=== PATIENT | male | born 1960 | race Caucasian/White ===

== ENCOUNTER 2018-01-03 09:24 | Emergency (ER) | payer MEDICAID ==
[2018-01-03] MEDS ORDERED: Sodium Chloride 0.9% 10 ML Syringe FLUSH PRN (09:42)
[2018-01-03] MEDS ORDERED: Aspirin 81 MG Tab.Chew PO ONE (09:42)
--- NOTE | 2018-01-03 11:03 | EDM.PDOC ---
ED HPI GENERAL MEDICAL PROBLEM - General Chief Complaint: Chest Pain Stated Complaint: CHEST PAIN X 3 DAYS Time Seen by Provider: 01/03/18 09:32 Source of Information: Reports: Patient History Limitations: Reports: No Limitations - History of Present Illness INITIAL COMMENTS - FREE TEXT/NARRATIVE: The patient presents with chest pain. This started about 3 days ago. He was lifting some heavy bricks 4 days ago and the next day he felt the pain. The pain is on the left side of his chest and he can reproduce it with palpation. The pain is also worse with deep breathing an leaning forward. He smokes but he has no history of HTN, diabetes, CAD and hypercholesterolemia. He has no shortness of breath or cough, fever, or chills. Onset: Gradual Duration: Day(s): (3) Location: Reports: Chest Quality: Reports: Sharp Severity: Moderate Improves with: Reports: Immobilization Worsens with: Reports: Breathing, Movement Context: Reports: Activity (Started after lifting bricks) Associated Symptoms: Reports: Chest Pain. Denies: No Other Symptoms, Nausea/ Vomiting, Shortness of Breath Left Chest Pain Score (Numeric/FACES): 4 - Related Data Allergies Allergy/AdvReac Type Severity Reaction Status Date / Time No Known Allergies Allergy Verified 01/03/18 09:28 Home Meds: Home Meds . [No Known Home Meds] 01/03/18 [History] Past Medical History - Past Surgical History GI Surgical History: Reports: Hernia, Inguinal Social & Family History - Tobacco Use Smoking Status *Q: Current Every Day Smoker Years of Tobacco use: 30 Packs/Tins Daily: 1 - Caffeine Use Caffeine Use: Reports: Coffee, Soda - Recreational Drug Use Recreational Drug Use: No ED ROS GENERAL - Review of Systems Review Of Systems: See Below Constitutional: Reports: No Symptoms HEENT: Reports: No Symptoms Respiratory: Reports: No Symptoms Cardiovascular: Reports: Chest Pain Endocrine: Reports: No Symptoms GI/Abdominal: Reports: No Symptoms : Reports: No Symptoms Musculoskeletal: Reports: No Symptoms ED EXAM, GENERAL - Physical Exam Exam: See Below Exam Limited By: No Limitations General Appearance: Alert, No Apparent Distress Ears: Normal External Exam Nose: Normal Inspection Head: Atraumatic, Normocephalic Neck: Normal Inspection Respiratory/Chest: No Respiratory Distress, Lungs Clear, Normal Breath Sounds Cardiovascular: Regular Rate, Rhythm, No Edema, No Murmur GI/Abdominal: Soft, Non-Tender, No Organomegaly, No Mass Back Exam: Normal Inspection Extremities: Normal Inspection EKG INTERPRETATION EKG Date: 01/03/18 Time: 09:37 Rhythm: NSR Rate (Beats/Min): 75 [place]: Normal P-Wave: Present QRS: Normal ST-T: Normal QT: Normal Course - Vital Signs Last Recorded V/S: Last Vital Signs Temp 97.4 F 01/03/18 09:29 Pulse 72 01/03/18 09:29 Resp 12 01/03/18 09:29 BP 134/97 H 01/03/18 09:29 Pulse Ox 98 01/03/18 09:29 - Orders/Labs/Meds Orders: Active Orders 24 hr Category Date Time Status Cardiac Monitoring [RC] . DIRECTED Care 01/03/18 09:42 Active EKG Documentation Completion [RC] STAT Care 01/03/18 09:42 Active Peripheral IV Care [RC] . DIRECTED Care 01/03/18 09:43 Active Chest 1V Frontal [CR] Stat Exams 01/03/18 09:43 Taken Sodium Chloride 0.9% [Saline Flush] Med 01/03/18 09:42 Active 10 ml FLUSH ASDIRECTED PRN Peripheral IV Insertion Adult [OM.PC] Stat Oth 01/03/18 09:42 Ordered Medication Orders Sodium Chloride (Saline Flush) 10 ml FLUSH ASDIRECTED PRN PRN Reason: Keep Vein Open Last Admin: 01/03/18 09:48 Dose: 10 ml Labs: Laboratory Tests 01/03/18 01/03/18 01/03/18 Range/Units 09:30 09:30 09:30 WBC 6.79 (4.23-9.07) K/mm3 RBC 5.55 (4.63-6.08) M/mm3 Hgb 16.9 (13.7-17.5) gm/L Hct 50.7 (40.1-51.0) % MCV 91.4 (79.0-92.2) fl MCH 30.5 (25.7-32.2) pg MCHC 33.3 (32.2-35.5) g/dl RDW Std Deviation 45.1 H (35.1-43.9) fL Plt Count 232 (163-337) K/mm3 MPV 10.1 (9.4-12.3) fl Neut % (Auto) 65.3 (34.0-67.9) % Lymph % (Auto) 19.9 L (21.8-53.1) % Patrick % (Auto) 9.1 (5.3-12.2) % Eos % (Auto) 4.7 (0.8-7.0) Baso % (Auto) 0.9 (0.1-1.2) % Neut # (Auto) 4.43 (1.78-5.38) K/mm3 Lymph # (Auto) 1.35 (1.32-3.57) K/mm3 Patrick # (Auto) 0.62 (0.30-0.82) K/mm3 Eos # (Auto) 0.32 (0.04-0.54) K/mm3 Baso # (Auto) 0.06 (0.01-0.08) K/mm3 D-Dimer, Quantitative 0.22 (0.19-0.59) mg/L Sodium 140 (136-145) mEq/L Potassium 4.5 (3.5-5.1) mEq/L Chloride 104 (98-107) mEq/L Carbon Dioxide 30 (21-32) mEq/L Anion Gap 10.5 (5-15) BUN 13 (7-18) mg/dL Creatinine 1.3 (0.7-1.3) mg/dL Est Cr Clr Drug Dosing 69.64 mL/min Estimated GFR (MDRD) 57 (>60) mL/min BUN/Creatinine Ratio 10.0 L (14-18) Glucose 116 H (74-106) mg/dL Calcium 9.3 (8.5-10.1) mg/dL Total Bilirubin 0.4 (0.2-1.0) mg/dL AST 12 L (15-37) U/L ALT 26 (16-63) U/L Alkaline Phosphatase 78 (46-116) U/L Troponin I < 0.017 (0.00-0.056) ng/mL Total Protein 7.5 (6.4-8.2) g/dl Albumin 3.8 (3.4-5.0) g/dl Globulin 3.7 gm/dL Albumin/Globulin Ratio 1.0 (1-2) Meds: Medications Generic Name Dose Route Start Last Admin Trade Name Freq PRN Reason Stop Dose Admin Sodium Chloride 10 ml 01/03/18 09:42 01/03/18 09:48 Saline Flush FLUSH 10 ml ASDIRECTED PRN Administration Keep Vein Open Discontinued Medications Generic Name Dose Route Start Last Admin Trade Name Sandy PRN Reason Stop Dose Admin Aspirin 324 mg 01/03/18 09:42 01/03/18 09:48 Aspirin PO 01/03/18 09:43 324 mg ONETIME ONE Administration - Re-Assessments/Exams Free Text/Narrative Re-Assessment/Exam: 01/03/18 11:02 I ordered an IV saline lock, EKG, CXR, labs and aspirin. His EKG shows a NSR with no acute changes. His CXR shows some mild emphysema. His CBC and CMP look good. His troponin is negative. He feels better. This is chest wall pain. I will discharge him home. Departure - Departure Time of Disposition: 11:05 Disposition: Home, Self-Care 01 Condition: Good Clinical Impression: Chest wall pain Referrals: Сергей Naranjo MD [Primary Care Provider] - 1 Week Additional Instructions: Try to stop smoking. Take motrin or aleve for the pain. Please return if you are worse. - My Orders Last 24 Hours: My Active Orders 01/03/18 09:42 Cardiac Monitoring [RC] . DIRECTED EKG Documentation Completion [RC] STAT Sodium Chloride 0.9% [Saline Flush] 10 ml FLUSH ASDIRECTED PRN Peripheral IV Insertion Adult [OM.PC] Stat 01/03/18 09:43 Peripheral IV Care [RC] . DIRECTED Chest 1V Frontal [CR] Stat - Assessment/Plan Last 24 Hours: My Active Orders 01/03/18 09:42 Cardiac Monitoring [RC] . DIRECTED EKG Documentation Completion [RC] STAT Sodium Chloride 0.9% [Saline Flush] 10 ml FLUSH ASDIRECTED PRN Peripheral IV Insertion Adult [OM.PC] Stat 01/03/18 09:43 Peripheral IV Care [RC] . DIRECTED Chest 1V Frontal [CR] Stat
--- NOTE | 2018-01-03 14:23 | CR ---
Chest: Portable view of the chest was obtained. Comparison: Prior chest x-ray of 06/30/13. Heart size and mediastinum are normal. Lungs are clear. Bony structures are grossly intact. Impression: 1. Nothing acute is identified on portable chest x-ray. Diagnostic code #1
== END 2018-01-03 11:12 | disposition home or self-care (01) ==
LOC: JD.ED 09:24
DX: R07.89 Other chest pain (principal); F17.210 Nicotine dependence, cigarettes, uncomplicated
CPT/HCPCS: 36415; 71045; 80053; 84484; 85025; 85379; 93005; 99285; A9270; J7050; 93010; 99284-25

== ENCOUNTER 2020-12-21 12:55 | Emergency (ER) | payer MEDICAID ==
[2020-12-21] MEDS ORDERED: Ondansetron 4 MG Tab.DIS PO ONE (14:48)
--- NOTE | 2020-12-21 14:56 | EDM.PDOC ---
ED HPI GENERAL MEDICAL PROBLEM - General Chief Complaint: General Stated Complaint: VOMITING/DIZZY/UNSTEADY Time Seen by Provider: 12/21/20 14:40 Source of Information: Reports: Patient History Limitations: Reports: No Limitations - History of Present Illness INITIAL COMMENTS - FREE TEXT/NARRATIVE: 59-year-old male presents emergency department complains of dizziness. He state s this suddenly occurred today and he had associated vomiting noted with this. He is unable to bend over or go from lying flat to sitting upright without having severe dizziness. He states this occurred about 1 month ago when he thought he had gotten a little too much water in his ear. His friend had given him eardrops to remove wax he said he used those and the dizziness resolved. Onset: Today, Sudden - Related Data Allergies Allergy/AdvReac Type Severity Reaction Status Date / Time No Known Allergies Allergy Verified 12/21/20 13:03 Home Meds: Home Meds Ciprofloxacin HCl/Dexameth [Ciproflox-Dexameth Otic Susp] 7.5 ml OT BID #2 drops.susp 12/21/20 [Rx] Meclizine [Antivert] 12.5 mg PO Q8H PRN #30 tab 12/21/20 [Rx] Past Medical History Cardiovascular History: Reports: None Respiratory History: Reports: None Gastrointestinal History: Reports: None Genitourinary History: Reports: None Musculoskeletal History: Reports: Arthritis, Back Pain, Chronic, Other (See Below) Other Musculoskeletal History: chronic shoulder and hip pain Neurological History: Reports: None Psychiatric History: Reports: Addiction Endocrine/Metabolic History: Reports: None Hematologic History: Reports: None Immunologic History: Reports: None Oncologic (Cancer) History: Reports: None Dermatologic History: Reports: None - Infectious Disease History Infectious Disease History: Reports: Chicken Pox - Past Surgical History Head Surgeries/Procedures: Reports: None HEENT Surgical History: Reports: Oral Surgery GI Surgical History: Reports: Hernia, Inguinal Social & Family History - Family History Family Medical History: No Pertinent Family History HEENT: Reports: None Cardiac: Reports: None Respiratory: Reports: None GI: Reports: None : Reports: None OBGYN: Reports: None Musculoskeletal: Reports: None Neurological: Reports: Alzheimers Disease Endocrine/Metabolic: Reports: None Hematologic: Reports: None - Tobacco Use Tobacco Use Status *Q: Current Every Day Tobacco User Years of Tobacco use: 40 Packs/Tins Daily: 1 - Caffeine Use Caffeine Use: Reports: None - Recreational Drug Use Recreational Drug Use: Yes Drug Use in Last 12 Months: No Recreational Drug Type: Reports: Cocaine, Marijuana/Hashish, Methamphetamine Recreational Drug Use Frequency: Not Used In Over 1 Year ED ROS GENERAL - Review of Systems Review Of Systems: See Below Constitutional: Reports: No Symptoms. Denies: Fever, Chills, Diaphoresis HEENT: Reports: No Symptoms, Vertigo Respiratory: Reports: No Symptoms Cardiovascular: Reports: No Symptoms Endocrine: Reports: No Symptoms GI/Abdominal: Reports: Nausea (Position changes), Vomiting (With position changes) : Reports: No Symptoms Musculoskeletal: Reports: No Symptoms Skin: Reports: No Symptoms Neurological: Reports: Dizziness. Denies: Headache, Numbness, Syncope Psychiatric: Reports: No Symptoms Hematologic/Lymphatic: Reports: No Symptoms Immunologic: Reports: No Symptoms ED EXAM, GENERAL - Physical Exam Exam: See Below Exam Limited By: No Limitations General Appearance: Alert, WD/WN, Mild Distress Eye Exam: Bilateral Eye: PERRL Ears: Normal External Exam Ear Exam: Bilateral Ear: Canal Normal (erythema and edema noted bilaterally), TM normal, Erythema, Swelling Nose: Normal Inspection, Normal Mucosa Throat/Mouth: Normal Inspection, Normal Lips, Normal Voice, No Airway Compromise. No: Normal Teeth (no teeth) Head: Atraumatic, Normocephalic Neck: Normal Inspection, Supple, Non-Tender, Full Range of Motion Respiratory/Chest: No Respiratory Distress, Lungs Clear, Normal Breath Sounds, No Accessory Muscle Use, Chest Non-Tender Cardiovascular: Normal Peripheral Pulses, Regular Rate, Rhythm, No Edema, No Murmur Peripheral Pulses: 2+: Radial (L), Radial (R) GI/Abdominal: Normal Bowel Sounds, Soft, Non-Tender, No Distention (Male) Exam: Deferred Rectal (Males) Exam: Deferred Back Exam: Normal Inspection, Full Range of Motion Extremities: Normal Inspection, Normal Range of Motion, Non-Tender, No Pedal Edema, Normal Capillary Refill Neurological: Alert, Oriented, CN II-XII Intact, Normal Cognition, No Motor/Sensory Deficits Psychiatric: Normal Affect, Normal Mood Skin Exam: Warm, Dry, Intact, Normal Color, No Rash Lymphatic: No Adenopathy Course - Vital Signs Text/Narrative:: 59-year-old male presents the emergency department with complaints of sudden onset dizziness. He states this started this afternoon and he had associated vomiting with this. Denies syncope or chest pain. States he had similar incident about a month ago when he got water in his ear. He states his friend gave him some earwax drops and then this resolved. Denies any significant medical history and does not take any prescription medications. Dr. Malik is his primary physician. States that any repositioning in the bed from side to side or lying flat to sitting causes him to have extreme dizziness and nausea and vomiting. I have ordered baseline lab work, an EKG, and a CT of the head. Full neuro exam was completely unremarkable. Patient does have some nystagmus noted when turning his head from side to side. Last Recorded V/S: Last Vital Signs Temp 97.2 F 12/21/20 13:06 Pulse 78 12/21/20 13:06 Resp 18 12/21/20 13:06 BP 166/107 H 12/21/20 13:06 Pulse Ox 98 12/21/20 13:06 - Orders/Labs/Meds Orders: Active Orders 24 hr Category Date Time Status EKG Documentation Completion [RC] STAT Care 12/21/20 14:49 Active Labs: Laboratory Tests 12/21/20 12/21/20 12/21/20 Range/Units 13:41 13:41 13:41 WBC 5.69 (4.23-9.07) K/mm3 RBC 5.02 (4.63-6.08) M/mm3 Hgb 15.2 D (13.7-17.5) gm/dl Hct 45.7 (40.1-51.0) % MCV 91.0 (79.0-92.2) fl MCH 30.3 (25.7-32.2) pg MCHC 33.3 (32.2-35.5) g/dl RDW Std Deviation 44.5 H (35.1-43.9) fL Plt Count 214 (163-337) K/mm3 MPV 10.0 (9.4-12.3) fl Neut % (Auto) 54.5 (34.0-67.9) % Lymph % (Auto) 30.4 (21.8-53.1) % [place] % (Auto) 9.1 (5.3-12.2) % Eos % (Auto) 4.4 (0.8-7.0) Baso % (Auto) 1.1 (0.1-1.2) % Neut # (Auto) 3.10 (1.78-5.38) K/mm3 Lymph # (Auto) 1.73 (1.32-3.57) K/mm3 [place] # (Auto) 0.52 (0.30-0.82) K/mm3 Eos # (Auto) 0.25 (0.04-0.54) K/mm3 Baso # (Auto) 0.06 (0.01-0.08) K/mm3 Sodium 142 (136-145) mEq/L Potassium 3.9 (3.5-5.1) mEq/L Chloride 105 (98-107) mEq/L Carbon Dioxide 26 (21-32) mEq/L Anion Gap 14.9 (5-15) BUN 20 H (7-18) mg/dL Creatinine 1.1 (0.7-1.3) mg/dL Est Cr Clr Drug Dosing 80.34 mL/min Estimated GFR (MDRD) > 60 (>60) mL/min BUN/Creatinine Ratio 18.2 H (14-18) Glucose 100 (74-106) mg/dL Calcium 9.3 (8.5-10.1) mg/dL Magnesium 2.1 (1.8-2.4) mg/dl Total Bilirubin 0.4 (0.2-1.0) mg/dL AST 19 (15-37) U/L ALT 35 (16-63) U/L Alkaline Phosphatase 69 (46-116) U/L Troponin I < 0.017 (0.00-0.056) ng/mL Total Protein 7.3 (6.4-8.2) g/dl Albumin 3.8 (3.4-5.0) g/dl Globulin 3.5 gm/dL Albumin/Globulin Ratio 1.1 (1-2) Meds: Medications Discontinued Medications Generic Name Dose Route Start Last Admin Trade Name Freq PRN Reason Stop Dose Admin Meclizine HCl 12.5 mg 12/21/20 15:41 12/21/20 15:51 Antivert PO 12/21/20 15:42 12.5 mg ONETIME ONE Administration Ondansetron HCl 4 mg 12/21/20 14:48 12/21/20 14:59 Zofran Odt PO 12/21/20 14:49 4 mg ONETIME ONE Administration - Re-Assessments/Exams Free Text/Narrative Re-Assessment/Exam: 12/21/20 15:55 Patient does have erythema and edema noted to his bilateral ear canals. Appears to be otitis externa. I had nursing staff clean/irrigate his right ear is I was unable to see his tympanic membrane due to wax. After patient's ear was cleaned he said he did note less vertigo type symptoms. I have also ordered for him to receive a dose of meclizine. 12/21/20 15:57 CT of the head radiologist impression: 1. Slight mucosal thickening within the ethmoid sinus which is most likely incidental. 2. Nothing acute is otherwise seen on noncontrast head CT study. 12/21/20 16:42 That his vertigo as resolved since receiving his meclizine. Repeat exam of the right ear reveals erythema and edema to the canal. Tympanic membrane appears normal. Will be discharged home with a prescription for meclizine and antibiotic eardrops. Departure - Departure Time of Disposition: 16:42 Disposition: Home, Self-Care 01 Condition: Good Clinical Impression: Vertigo Otitis externa Qualifiers: Otitis externa type: unspecified type Chronicity: unspecified Laterality: bilateral Qualified Code(s): H60.93 - Unspecified otitis externa, bilateral - Discharge Information Prescriptions: Meclizine [Antivert] 12.5 mg PO Q8H PRN #30 tab PRN Reason: Other Ciprofloxacin HCl/Dexameth [Ciproflox-Dexameth Otic Susp] 7.5 ml OT BID #2 drops.susp Instructions: Otitis Externa, [id number], Vertigo, [id number] Referrals: Сергей Naranjo MD [Primary Care Provider] - Forms: ED Department Discharge Additional Instructions: You were seen in the emergency department today with complaints of dizziness and vertigo type symptoms. Lab work was completed and this was unremarkable, and EKG was completed and this was unremarkable as well. We also did a CT scan of your head and nothing acute was appreciated on the CT study. Your symptoms resolved once your right ear was irrigated and you received a dose of meclizine. You will be discharged home with prescriptions for meclizine. You may take 1 tab every 8 hours as needed for vertigo type symptoms. This medication can cause some drowsiness. Examination also revealed that you have an infection in the canal of both your ears. A prescription has been ordered for eardrops. You will need to take these antibiotic drops twice daily for 10 days and then you w ill need to follow-up with your primary care physician to have these rechecked. Should your condition worsen or change, please return to the emergency department. Sepsis Event Note (ED) - Evaluation Sepsis Screening Result: No Definite Risk - Focused Exam Vital Signs: Vital Signs Temp Pulse Resp BP Pulse Ox 12/21/20 13:06 97.2 F 78 18 166/107 H 98 - My Orders Last 24 Hours: My Active Orders 12/21/20 14:49 EKG Documentation Completion [RC] STAT - Assessment/Plan Last 24 Hours: My Active Orders 12/21/20 14:49 EKG Documentation Completion [RC] STAT
--- NOTE | 2020-12-21 15:32 | CT ---
Head CT Technique: Multiple axial sections through the brain were obtained. Intravenous contrast was not utilized. Reconstructed coronal and sagittal images were also obtained. Comparison: No prior intracranial imaging is available. Findings: Ventricles along with basal cisterns and sulci over the convexities are within normal limits for the patient's age. No abnormal parenchymal densities are seen. No evidence of intracranial hemorrhage. No midline shift or mass-effect is appreciated. Bone window settings were reviewed. No acute calvarial finding is appreciated. Visualized mastoid sinuses are clear. Slight mucosal thickening is noted within the ethmoid sinus. No acute finding is noted within the paranasal sinuses. Impression: 1. Slight mucosal thickening within the ethmoid sinus which is most likely incidental. 2. Nothing acute is otherwise seen on noncontrast head CT study. Diagnostic code #2
[2020-12-21] MEDS ORDERED: Meclizine 12.5 MG Tab PO ONE (15:41)
== END 2020-12-21 17:04 | disposition home or self-care (01) ==
LOC: JD.ED 12:55
DX: H60.93 Unspecified otitis externa, bilateral (principal); Z72.0 Tobacco use
CPT/HCPCS: 36415; 70450; 80053; 83735; 84484; 85025; 93005; 99284; A9270

== ENCOUNTER 2023-01-03 23:23 | Emergency (ER) | payer MEDICAID ==
[2023-01-04] MEDS ORDERED: Acetaminophen/HYDROcodone 325-5 MG Tab PO ONE (00:31)
[2023-01-04] MEDS ORDERED: Diphtheria,Pertussis(Acell),Tetanus Vaccine 0.5 ML Syringe IM ONE (00:32)
[2023-01-04] MEDS ORDERED: Levofloxacin 250 MG Tab PO ONE (00:56)
== END 2023-01-04 01:26 | disposition home or self-care (01) ==
LOC: JD.ED 23:23
DX: S91.132A Puncture wound without foreign body of left great toe without damage to nail, initial encounter (principal); Z23 Encounter for immunization; W45.0XXA Nail entering through skin, initial encounter
CPT/HCPCS: 73630; 90471; 90715; 99283; A9270

== ENCOUNTER 2024-04-04 00:22 | Emergency (ER) | payer MEDICAID, OTHER ==
[2024-04-04] MEDS: Acetaminophen 325 MG Tab PO ONE (01:57)
== END 2024-04-04 02:54 | disposition home or self-care (01) ==
LOC: JD.ED 00:22
DX: S00.83XA Contusion of other part of head, initial encounter (principal); S00.412A Abrasion of left ear, initial encounter; V49.40XA Driver injured in collision with unspecified motor vehicles in traffic accident, initial encounter; Y92.410 Unspecified street and highway as the place of occurrence of the external cause
CPT/HCPCS: 70450; 70486; 72125; 99283; A9270

== ENCOUNTER 2024-04-12 19:27 | Emergency (ER) | payer SELFPAY ==
[2024-04-12] MEDS ORDERED: Sodium Chloride 0.9% 10 ML Syringe FLUSH PRN (19:39)
[2024-04-12 19:46] LABS: BASOPHILS ABSOLUTE AUTO 0.1 K/mm3 (0.0-0.2); BASOPHILS PERCENT AUTO 1.3 % (0.0-1.0); EOSINOPHILS ABSOLUTE AUTO 0.2 K/mm3 (0.0-0.4); EOSINOPHILS PERCENT AUTO 4.5 % (0.0-6.0); HEMATOCRIT 41.3 % (42.0-52.0); HEMOGLOBIN 13.8 gm/dl (14.0-18.0); IMMATURE GRAN ABSOLUTE AUTO 0.01 K/mm3 (0.00-0.05); IMMATURE GRAN PERCENT AUTO 0.2 % (0.0-0.4); LYMPHOCYTES ABSOLUTE AUTO 1.1 K/mm3 (1.0-4.8); LYMPHOCYTES PERCENT AUTO 20.3 % (24.0-44.0); MEAN CORPUSCULAR HEMOGLOBIN 29.4 pg (28.0-32.0); MEAN CORPUSCULAR HGB CONC 33.4 g/dl (32.0-36.0); MEAN CORPUSCULAR VOLUME 88.1 fl (83.0-99.0); MEAN PLATELET VOLUME 9.7 fl (9.4-12.4); MONOCYTES ABSOLUTE AUTO 0.7 K/mm3 (0.0-0.8); MONOCYTES PERCENT AUTO 12.6 % (0.0-8.0); NEUTROPHILS ABSOLUTE AUTO 3.3 K/mm3 (1.8-7.7); NEUTROPHILS PERCENT AUTO 61.1 % (41.0-71.0); PLATELET COUNT,PLT 243 K/mm3 (150-400); RED BLOOD CELL COUNT 4.69 M/mm3 (4.52-5.90); WHITE BLOOD CELL COUNT,WBC 5.33 K/mm3 (3.9-11.3)
[2024-04-12 20:28] LABS: ALBUMIN 3.6 g/dl (3.4-5.0); ANION GAP 13.4 (5-15); BILIRUBIN TOTAL 0.4 mg/dL (0.2-1.0); BUN/CREATININE RATIO 16.4 (14-18); CALCIUM 8.7 mg/dL (8.5-10.1); CREATININE 1.1 mg/dL (0.7-1.3); EST CRCL DRUG DOSING (CG) 73.71 mL/min; POTASSIUM,K 4.4 mEq/L (3.5-5.1); PROTEIN TOTAL,TP 7.1 g/dl (6.4-8.2)
[2024-04-12 20:33] LABS: INR 0.97; PROTHROMBIN TIME 10.4 SECONDS (9.7-12.0)
[2024-04-12 20:35] LABS: PTT,PARTIAL THROMBOPLSTIN TIME 31.8 SECONDS (21.7-31.4)
[2024-04-12 20:41] LABS: D-DIMER QUANTITATIVE 0.6 mg/L (0.19-0.50)
== END 2024-04-12 23:57 | disposition home or self-care (01) ==
LOC: JD.ED 19:27
DX: R07.81 Pleurodynia (principal)
CPT/HCPCS: 36415; 71045; 71045-26; 80053; 83690; 83880; 84484; 85025; 85379; 85610; 85730; 93005; 93010; 99282; 99285

== ENCOUNTER 2024-06-06 02:33 | Emergency (ER) | payer SELFPAY ==
[2024-06-06] MEDS: Lidocaine 1% 10 ML MDV INJECT ONE (03:28)
[2024-06-06] MEDS: Acetaminophen/HYDROcodone 325-5 MG Tab PO ONE (03:28)
== END 2024-06-06 05:54 | disposition home or self-care (01) ==
LOC: JD.ED 02:33
DX: S62.652A Nondisplaced fracture of middle phalanx of right middle finger, initial encounter for closed fracture (principal); S63.252A Unspecified dislocation of right middle finger, initial encounter; S01.112A Laceration without foreign body of left eyelid and periocular area, initial encounter; S42.92XA Fracture of left shoulder girdle, part unspecified, initial encounter for closed fracture; V18.4XXA Pedal cycle driver injured in noncollision transport accident in traffic accident, initial encounter; Y93.55 Activity, bike riding
CPT/HCPCS: 12011; 26770; 70450; 73030; 73130; 73140; 73200; 99284; A9270; 26725; 99283; J3490

== ENCOUNTER 2024-07-11 17:54 | Emergency (ER) | payer SELFPAY ==
[2024-07-11] MEDS: Ketorolac 60 MG/2 ML SDV IM ONE (19:55)
== END 2024-07-11 21:35 | disposition home or self-care (01) ==
LOC: JD.ED 17:54
DX: S42.124A Nondisplaced fracture of acromial process, right shoulder, initial encounter for closed fracture (principal); V17.0XXA Pedal cycle driver injured in collision with fixed or stationary object in nontraffic accident, initial encounter; Y93.55 Activity, bike riding
CPT/HCPCS: 73030; 96372; 99283; J1885

== ENCOUNTER 2025-09-05 22:15 | Emergency (ER) | payer MEDICAID | END 2025-09-05 22:31 | LOC: JD.ED 22:15 | DX: Z02.89 Encounter for other administrative examinations (principal); S60.417A Abrasion of left little finger, initial encounter; F17.200 Nicotine dependence, unspecified, uncomplicated; X58.XXXA Exposure to other specified factors, initial encounter | CPT/HCPCS: 99284 ==